=== PATIENT | female | born 1975 | race Caucasian/White ===

== ENCOUNTER → 2017-12-12 | Outpatient (REF) | payer OTHER ==
[2017-12-14 14:11] LABS: HPV HYBRID CAPTURE II Negative (Negative)
== END ==
LOC: M LAB REF 19:18
DX: Z12.72 Encounter for screening for malignant neoplasm of vagina (principal)

== ENCOUNTER → 2018-04-01 | Outpatient (CLI) | payer OTHER ==
[2018-04-01 13:10] LABS: BASO % 0.3 % (0.0-1.0); EOS # 0.3 10^3/uL (0.0-0.50); EOS % 3.7 % (0.0-3.0); HEMATOCRIT 39.4 % (36.0-47.0); HEMOGLOBIN 13.4 g/dl (12.0-15.5); IMMATURE GRANULOCYTE % 0.4 % (0-3.0); LYMPH # 1.9 10^3/uL (1.5-4.5); LYMPH % 26.2 % (24.0-44.0); MEAN CORPUSCULAR HEMOGLOBIN 30.2 pg (27.0-33.0); MEAN CORPUSCULAR VOLUME 88.7 fl (80.0-96.0); MONO # 0.6 10^3/uL (0.0-0.8); MONO % 7.8 % (0.0-5.0); NEUTROPHILS # 4.5 10^3/uL (1.8-7.7); NEUTROPHILS % 61.6 % (36.0-66.0); PLATELET COUNT, AUTOMATED 221 10^3/uL (150-450); RED BLOOD COUNT 4.44 10^6/uL (4.00-5.40); RED CELL DISTRIBUTION WIDTH 12.8 % (11.5-14.5); WHITE BLOOD COUNT 7.3 10^3/uL (4.0-10.0)
[2018-04-01 13:38] LABS: ERYTHROCYTE SEDIMENTATION RATE 7 mm/hr (0-20)
[2018-04-01 13:43] LABS: ALBUMIN 3.8 GM/DL (3.2-5.2); ALBUMIN/GLOBULIN RATIO 1.27 (1.00-1.93); ALKALINE PHOSPHATASE 64 U/L (45-117); ALT/SGPT 31 U/L (12-78); ANION GAP 6 MEQ/L (8-16); AST/SGOT 14 U/L (7-37); BILIRUBIN,TOTAL 0.4 MG/DL (0.2-1.0); BLOOD UREA NITROGEN 12 MG/DL (7-18); C REACTIVE PROTEIN QUANTITATIV < 0.30 MG/DL (0.00-0.30); CALCIUM LEVEL 8.6 MG/DL (8.5-10.1); CARBON DIOXIDE LEVEL 29 MEQ/L (21-32); CHLORIDE LEVEL 108 MEQ/L (98-107); CREATININE FOR GFR 0.83 MG/DL (0.55-1.30); FREE T4 0.86 NG/DL (0.76-1.46); GLOMERULAR FILTRATION RATE > 60.0 (>58); GLUCOSE, FASTING 88 MG/DL (70-100); POTASSIUM SERUM 4.4 MEQ/L (3.5-5.1); SODIUM LEVEL 143 MEQ/L (136-145); TOTAL PROTEIN 6.8 GM/DL (6.4-8.2)
[2018-04-01 13:48] LABS: COLLAGEN EPINEPHRINE 163 SECONDS (74-162)
[2018-04-01 14:12] LABS: COLLAGEN ADP 100 SECONDS (56-103)
[2018-04-02 14:17] LABS: ANTINUCLEAR ANTIBODIES DIRECT Negative (Negative)
== END ==
LOC: M SMT 10:25
DX: R23.3 Spontaneous ecchymoses (principal)
CPT/HCPCS: 84443

== ENCOUNTER → 2018-08-21 | Outpatient (REF) | payer OTHER | LOC: M LAB REF 17:04 | PROVIDERS: ATTEND Physician Assistant | DX: N89.8 Other specified noninflammatory disorders of vagina (principal) ==

== ENCOUNTER → 2018-08-31 | Outpatient (REF) | payer OTHER | LOC: M SFHCLERA 14:03 | PROVIDERS: ATTEND Nurse Practitioner Family | DX: R53.81 Other malaise (principal) ==

== ENCOUNTER → 2018-10-27 | Outpatient (CLI) | payer OTHER ==
[2018-10-27 17:12] LABS: HEMATOCRIT 41.4 % (36.0-47.0); HEMOGLOBIN 14.1 g/dl (12.0-15.5); MEAN CORPUSCULAR HEMOGLOBIN 29.7 pg (27.0-33.0); MEAN CORPUSCULAR HGB CONC 34.1 g/dl (32.0-36.5); MEAN CORPUSCULAR VOLUME 87.2 fl (80.0-96.0); PLATELET COUNT, AUTOMATED 296 10^3/uL (150-450); RED BLOOD COUNT 4.75 10^6/uL (4.00-5.40); WHITE BLOOD COUNT 12.6 10^3/uL (4.0-10.0)
[2018-10-27 17:28] LABS: FOLLICLE STIMULATING HORMONE 4.6 mIU/mL; LUTEINIZING HORMONE 5.8 mIU/mL
== END ==
LOC: M SMT 14:49
PROVIDERS: ATTEND Physician Assistant
DX: N39.46 Mixed incontinence (principal)

== ENCOUNTER → 2019-07-06 | Outpatient (REF) | payer OTHER ==
[2019-07-06 18:41] LABS: APPEARANCE, URINE CLEAR (CLEAR); BACTERIA, URINE AUTO NEGATIVE (NEGATIVE); BILIRUBIN, URINE AUTO NEGATIVE (NEGATIVE); BLOOD, URINE BLOOD 1+ (NEGATIVE); COLOR, URINE YELLOW (YELLOW); GLUCOSE, URINE (UA) AUTO NEGATIVE (NEGATIVE); KETONE, URINE AUTO NEGATIVE (NEGATIVE); LEUKOCYTE ESTERASE, URINE AUTO NEGATIVE (NEGATIVE); NITRITE, URINE AUTO NEGATIVE (NEGATIVE); PROTEIN, URINE AUTO NEGATIVE (NEGATIVE); RBC, URINE AUTO 2 /HPF (0-3); SPECIFIC GRAVITY URINE AUTO 1.018 (1.002-1.035); SQUAMOUS EPITHELIAL CELL UR AU 0 /HPF (0-6); UROBILINOGEN, URINE AUTO 0.2 mg/dL (0.0-2.0); WBC, URINE AUTO 0 /HPF (0-3)
== END ==
LOC: M LAB REF 18:20
PROVIDERS: ATTEND Obstetrics & Gynecology
DX: N39.3 Stress incontinence (female) (male) (principal)

== ENCOUNTER 2019-11-12 09:48 | Day surgery (SDC) | payer OTHER ==
[~2019-11-12] VITALS: Ht 170.2 cm; Wt 95.2 kg
[~2019-11-12 09:48] MED LIST: ACETAMINOPHEN 1000MG 100ML IV BTL (OFIRMEV) (J0131 PER 10MG) As Ordered ONE; LIDOCAINE 2% INJ 100 MG/5 ML SDV (FOR ANES.) As Ordered ONE; LR 1,000 ML IV ONE; MIDAZOLAM INJ 2 MG/2 ML VIAL (J2250) As Ordered ONE; MULTCAP PO; ONDANSETRON 4MG/2ML VIAL (J2405) As Ordered ONE; PHENYLephrine HCL 500 MCG/5 ML (100MCG/ML) SYRINGE (J2370) As Ordered ONE; ROCURONIUM BROMIDE 50 MG/5 ML VIAL As Ordered ONE; SUGAMMADEX SODIUM 500 MG/5 ML VIAL (BRIDION) As Ordered ONE; ceFAZolin SOD 2 GM in IV 1 EA IV ONE; dexameTHASONE 4 MG/ML 1ML VIAL (J1100) As Ordered ONE; ePHEDrine SULFATE 25 MG/5 ML(5MG/ML) SYRINGE As Ordered ONE; fentaNYL 100 MCG/2 ML INJECTION (J3010) As Ordered ONE; propofoL 200 MG/20 ML VIAL As Ordered ONE
[2019-11-12 10:35] LABS: HEMATOCRIT 41.9 % (36.0-47.0); HEMOGLOBIN 14.3 g/dl (12.0-15.5); MEAN CORPUSCULAR HEMOGLOBIN 30.8 pg (27.0-33.0); MEAN CORPUSCULAR HGB CONC 34.1 g/dl (32.0-36.5); MEAN CORPUSCULAR VOLUME 90.1 fl (80.0-96.0); PLATELET COUNT, AUTOMATED 226 10^3/uL (150-450); RED BLOOD COUNT 4.65 10^6/uL (4.00-5.40); WHITE BLOOD COUNT 7.9 10^3/uL (4.0-10.0)
[2019-11-12] MEDS ORDERED: VASOPRESSIN INJ 20 UNITS/ML VIAL As Ordered ONE (11:55)
[2019-11-12] MEDS ORDERED: ACETAMINOPHEN 1000MG 100ML IV BTL (OFIRMEV) (J0131 PER 10MG) As Ordered ONE (12:32)
[2019-11-12] MEDS ORDERED: fentaNYL 100 MCG/2 ML INJECTION (J3010) As Ordered ONE ×2 (12:51→15:45)
[2019-11-12] MEDS ORDERED: LABETALOL HCL 100 MG/20 ML VIAL As Ordered ONE (13:35)
[2019-11-12] MEDS ORDERED: MORPHINE 1MG/ML IN 0.9% NACL 100ML IV BAG As Ordered ONE (14:37)
[2019-11-12] MEDS: MORPHINE 1MG/ML IN 0.9% NACL 100ML IV BAG IV PRN ×2 (14:50→15:30)
[2019-11-12] MEDS ORDERED: LR 1,000 ML IV SCH (15:00)
[2019-11-12] MEDS: oxyCODONE 5MG TAB PO PRN ×2 (15:00→15:30)
[2019-11-12] MEDS: fentaNYL 100 MCG/2 ML INJECTION (J3010) IV PRN ×8 (15:00→16:30)
[2019-11-12] MEDS ORDERED: ONDANSETRON 4MG/2ML VIAL (J2405) IV PRN (15:00)
[2019-11-12] MEDS ORDERED: NALOXONE INJ 0.4 MG/1 ML VIAL (J2310) IV PRN (16:00)
[2019-11-12] MEDS ORDERED: EPIDURAL/PCA KEYS XX PRN (16:00)
[2019-11-12] MEDS ORDERED: NALBUPHINE HCL 10 MG/ML AMP (J2300) IV PRN (16:00)
[2019-11-12] MEDS ORDERED: diphenhydrAMINE INJ 50MG/ML VIAL (J1200) IV PRN (16:00)
[2019-11-12] MEDS: LR 1,000 ML IV SCH ×2 (16:01→21:53)
[2019-11-12] MEDS ORDERED: HYDROMORPHONE HCL 0.5 MG/ 0.5 ML SYRINGE (J1170 PER 1) As Ordered ONE (16:08)
[2019-11-12] MEDS ORDERED: IBUPROFEN 600 MG TAB PO PRN (16:30)
[2019-11-12] MEDS ORDERED: HYDROMORPHONE HCL 0.5 MG/ 0.5 ML SYRINGE (J1170 PER 1) IV PRN (16:30)
[2019-11-12 17:30] VITALS: BP 145/72
[2019-11-12 18:00] VITALS: BP 152/85
--- NOTE | 2019-11-12 18:56 | RO ---
DATE OF PROCEDURE: 11/12/2019 PREOPERATIVE DIAGNOSIS AND INDICATION FOR SURGERY: Pain, dyspareunia, stress urinary incontinence, urethral hypermobility, etc. Painful left vulvar scar. POSTOPERATIVE DIAGNOSIS: Pain, dyspareunia, stress urinary incontinence, urethral hypermobility, etc. Painful left vulvar scar. PROCEDURE: Total vaginal hysterectomy with right salpingectomy, left tube was too high to reach. Altis midurethral sling, cystourethroscopy, and removal of left vulvar scar with, of course, revision there. SURGEON: Therese Blair MD SUSTAINABILITY PROJECT MANAGER: None. ANESTHESIA: General endotracheal anesthesia. DESCRIPTION OF PROCEDURE: Anahi was brought to the operating room where sufficient general endotracheal anesthesia was induced. She was prepped, draped and positioned in the usual sterile fashion, the weighted speculum placed and the bladder emptied. And then tenacula were placed on the anterior and posterior cervix and a circumferential incision made around the base of the cervix with the cardinal ligaments then isolated, clamped with CormierStovall clamps, which were used throughout, transected and then ligated with #0 Vicryl suture, which was used throughout the rest of this portion of the case. Then, isolated, clamped, transected and ligated the uterosacrals, which were held for later reattachment to the cuff, and then dissected the posterior reflection to enter the peritoneum posteriorly. We then continued the dissection anteriorly create the bladder flap and then the uterine vasculature was carefully clamped, transected, and ligated along the lateral aspect of the uterus until the uterus could be delivered. With the uterus out of the way, we were then able to visualize the pedicles. There was good hemostasis at the vascular pedicles at this point. The right tube was in a position where with a Janusz we could bring it down, and we carefully clamped across the mesentery of this tube and delivered it, ligating the mesentery, of course, with #0 Vicryl suture. On the left side, the tube disappeared up into the abdomen fairly rapidly, and even with some gentle efforts to bring that tube down, we were unable to really visualize it well enough to work there, so we were unable to deliver the left tube. We then began closing the cuff and along the left side at the angle of the cuff, there was a pumping vessel, which needed to be oversewn with the #0 Vicryl and then observed. And we were able to get that under control. We then completed angle stitches, both right and left, and then closed the cuff in the usual fashion, of course, incorporating the uterosacrals into the closure. There was good approximation and hemostasis. At this point, decision was made to take the elevated scar from the patient's previous obstetric injury at the posterior left vulva and take that off and do that revision. So, this area was elevated with an Allis clamp and carefully incised with a #15 blade and oversewn with #4-0 Monocryl to close that wound and try to create a flat surface for this patient for whom this painful scarred area was also contributing to her dyspareunia as was her uterine tenderness. With that removal and revision completed, we then turned our attention to the Altis midurethral sling. An approximately 2 cm anterior vaginal wall incision was made after injection of vasopressin. This was also carried out laterally. The Strully scissors were used to dissect out toward the obturator membrane bilaterally. I was able to place my finger on both sides to feel this and also to feel that this was away from the reflection of the vaginal sulcus so that we were not too shallow but we also were not too deep. And we were then able to place first on the right side, then the left and carefully tension this so that it was just touching but not tight. Then, we closed that vaginal wound and did cystourethroscopy, which showed normal jets of urine, no injury to the bladder wall from the hysterectomy, and no injury, especially just lateral to the trigone. And in that proximal bladder, no injury from the midurethral sling, nor did the urethra show any injury from the midurethral sling. We did place vaginal packing at the end of the case. There had been some mild oozing during the dissection for the Altis, and, of course, we had already had that bleeding at the angle, so I wanted to minimize additional oozing. So, we went ahead and placed a vaginal pack and a Anne, and the case was then ended. Estimated blood loss for the procedure: About 125 mL. Fluid replacement was crystalloid. Complications: None. Condition and Disposition: Anahi tolerated the procedure well and was recovering in the recovery room in good condition.
[2019-11-12 19:00] VITALS: BP 161/94
[2019-11-12 20:00] VITALS: BP 127/75
[2019-11-12 21:00] VITALS: BP 121/79
[2019-11-12 22:00] VITALS: BP 122/75
[2019-11-13 02:00] VITALS: BP 134/83
[2019-11-13] MEDS: LR 1,000 ML IV SCH (04:38)
[2019-11-13 06:00] VITALS: BP 121/74
[2019-11-13 07:17] LABS: HEMATOCRIT 32.8 % (36.0-47.0); MEAN CORPUSCULAR HEMOGLOBIN 30.1 pg (27.0-33.0); MEAN CORPUSCULAR HGB CONC 33.5 g/dl (32.0-36.5); MEAN CORPUSCULAR VOLUME 89.6 fl (80.0-96.0); PLATELET COUNT, AUTOMATED 201 10^3/uL (150-450); RED BLOOD COUNT 3.66 10^6/uL (4.00-5.40); WHITE BLOOD COUNT 12.7 10^3/uL (4.0-10.0)
[2019-11-13] MEDS: NORCO, ANEXSIA 5/325MG TABLET (HYDROcodone/ACETAMINOPHEN) PO PRN ×2 (08:37→15:00)
[2019-11-13 10:00] VITALS: BP 129/69
[2019-11-13 14:00] VITALS: BP 123/69
== END 2019-11-13 17:30 | disposition home or self-care (01) ==
LOC: M SDC 09:48 → M MS5PR 17:25 → M SDC 11-13 17:30
PROVIDERS: ATTEND Obstetrics & Gynecology
DX: N94.10 Unspecified dyspareunia (principal); N88.8 Other specified noninflammatory disorders of cervix uteri; N80.0 Endometriosis of uterus; N39.3 Stress incontinence (female) (male); N36.41 Hypermobility of urethra; N90.89 Other specified noninflammatory disorders of vulva and perineum; L90.5 Scar conditions and fibrosis of skin; Z91.013 Allergy to seafood; Z88.8 Allergy status to other drugs, medicaments and biological substances
CPT/HCPCS: 13131; 36415; 57288; 58262; 81025; 85027; 86850; 86900; 86901; 88302; 88307; 96360; 96361; C1771; J0131; J0690; J1100; J1200; J2250; J2370; J2405; J3010

== ENCOUNTER → 2020-04-13 | Outpatient (CLI) | payer OTHER ==
[~2020-04-13] MED LIST changes: -ACETAMINOPHEN 1000MG 100ML IV BTL (OFIRMEV) (J0131 PER 10MG) As Ordered ONE; -LIDOCAINE 2% INJ 100 MG/5 ML SDV (FOR ANES.) As Ordered ONE; -LR 1,000 ML IV ONE; -MIDAZOLAM INJ 2 MG/2 ML VIAL (J2250) As Ordered ONE; -ONDANSETRON 4MG/2ML VIAL (J2405) As Ordered ONE; -PHENYLephrine HCL 500 MCG/5 ML (100MCG/ML) SYRINGE (J2370) As Ordered ONE; -ROCURONIUM BROMIDE 50 MG/5 ML VIAL As Ordered ONE; -SUGAMMADEX SODIUM 500 MG/5 ML VIAL (BRIDION) As Ordered ONE; -ceFAZolin SOD 2 GM in IV 1 EA IV ONE; -dexameTHASONE 4 MG/ML 1ML VIAL (J1100) As Ordered ONE; -ePHEDrine SULFATE 25 MG/5 ML(5MG/ML) SYRINGE As Ordered ONE; -fentaNYL 100 MCG/2 ML INJECTION (J3010) As Ordered ONE; -propofoL 200 MG/20 ML VIAL As Ordered ONE
[2020-05-14 10:43] LABS: BASO # 0.1 10^3/uL (0.0-0.2); BASO % 0.4 % (0.0-1.0); EOS # 0.2 10^3/uL (0.0-0.5); EOS % 1.9 % (0.0-3.0); HEMATOCRIT 42.8 % (36.0-47.0); HEMOGLOBIN 14.2 g/dl (12.0-15.5); LYMPH # 2.8 10^3/uL (1.5-5.0); LYMPH % 22.6 % (24.0-44.0); MEAN CORPUSCULAR HEMOGLOBIN 29.7 pg (27.0-33.0); MEAN CORPUSCULAR HGB CONC 33.2 g/dl (32.0-36.5); MEAN CORPUSCULAR VOLUME 89.5 fl (80.0-96.0); MONO # 0.8 10^3/uL (0.0-0.8); MONO % 6.2 % (0.0-5.0); NEUTROPHILS # 8.5 10^3/uL (1.5-8.5); NEUTROPHILS % 67.9 % (36.0-66.0); PLATELET COUNT, AUTOMATED 274 10^3/uL (150-450); RED BLOOD COUNT 4.78 10^6/uL (4.00-5.40); WHITE BLOOD COUNT 12.5 10^3/uL (4.0-10.0)
[2020-05-15 11:45] LABS: ANTINUCLEAR ANTIBODIES DIRECT See Separate Report; Lyme Disease IgG/IgM Antibodie See Separate Report
[2020-05-28 07:17] LABS: C REACTIVE PROTEIN QUANTITATIV 0.36 MG/DL (0.00-0.30); URIC ACID 5.4 MG/DL (2.6-6.0)
== END ==
LOC: M LAB 10:45
PROVIDERS: ATTEND Physician Assistant Surgical
DX: M25.541 Pain in joints of right hand (principal)

== ENCOUNTER → 2020-09-14 | Outpatient (REF) | payer OTHER | LOC: M LAB REF 17:07 | PROVIDERS: ATTEND Physician Assistant | DX: N39.46 Mixed incontinence (principal) ==